=== PATIENT | female | born 1940 | race Caucasian/White ===

== ENCOUNTER 2016-10-07 09:37 | Emergency (ER) | payer MEDICARE, BC ==
[~2016-10-07] VITALS: Ht 160 cm; Wt 50.0 kg
[~2016-10-07 09:37] MED LIST: CEPH-443 PO; CRESTOR 10 MG; FOLI-49; METH2.5T33; SULFASALAZINE 1000 MG
[2016-10-07 09:41] VITALS: Ht 160 cm; Wt 50.0 kg
--- NOTE | 2016-10-07 11:34 | RADRPT ---
PROCEDURE: XR Hip. CLINICAL INDICATION: Left hip pain TECHNIQUE: AP and frog lateral views of the left hip were performed. COMPARISON: None. FINDINGS: No fracture or dislocation is identified. No significant soft tissue swelling is noted. No radiopaqu e foreign body is identified. IMPRESSION: 1. No acute fracture or dislocation. RPTAT: UU .Tina Merino MD, Date Time Electronically viewed and signed by .Tina Merino MD, MD on 10/07/2016 11:34 .N/
--- NOTE | 2016-10-07 11:36 | RADRPT ---
PROCEDURE: XR Lumbar Spine. CLINICAL INDICATION: Low back pain. TECHNIQUE: Three views of the lumbar spine are available for review COMPARISON: None available FINDINGS: The normal lumbar lordosis is preserved. Alignment is intact. Diffuse osseous demineralization is noted which limits evaluation for fracture. No acute lumbar spine compression fracture or dislocatio n is seen. The vertebral body heights are all normal. There are multilevel mild degenerative changes of lumbar spine, most pronounced at L5-S1. Aortic atherosclerotic vascular calcifications are identified. IMPRESSION: 1. Diffuse osseous demineralization. 2. No acute lumbar spine compression fracture or traumatic subluxation. 3. Multilevel mild degenerative changes of lumbar spine, most pronounced at L5-S1. 4. Aortic atherosclerosis. RPTAT: UU .Tina Merino MD, Date Time Electronically viewed and signed by .Tina Merino MD, on 10/07/2016 11:36 .N/
[2016-10-07] MEDS ORDERED: KETOROLAC 15 MG INJ IM STA (11:44)
[2016-10-07] MEDS ORDERED: ULT50 PO (11:56)
--- NOTE | 2016-10-07 12:07 | ERD ---
ER Documentation Chief Complaint Date/Time DATE: 10/07/16 TIME: 12:00 Chief Complaint LT LOWER BACK /HIP PAIN S/P HIT ON CORNER OF TABLE AT HOME HPI Patient is a 76-year-old female here with son presents to the ED with low back pain. She states that she hit her left low back on a kitchen cabinet 2 weeks ago. She states that the pain comes and goes. She denies radiation of pain. She states the pain is a 3/10. She states that she takes tylenol and warm patches for her symptoms which helps with the pain. She denies urinary symptoms. She denies chest pain, shortness of breath, cough or difficulty breathing. She denies headache or dizziness. She denies hitting her head, blacking out or losing consciousness. She states she is able to walk without difficulty. She denies weakness or fatigue. She denies saddle anesthesia. She denies difficulty urinating or stooling. She denies bleeding. She states that she continues to clean the house, rake the leaves even after the injury 2 weeks ago. Denies other symptoms. ROS All systems reviewed and are negative except as per history of present illness. Medications Home Meds Active Scripts Tramadol HCl (Tramadol HCl) 50 Mg Tablet, 50 MG PO Q6 Y for PAIN, #7 TAB Prov:VASILE PETERSEN PA-C 10/07/16 Reported Medications Folic Acid* (Folic Acid*) 1 Mg Tablet 11/20/12 [sulfasalinide 1000mg bid] No Conflict Check 11/20/12 [crestor 10mg] No Conflict Check 11/20/12 Methotrexate Sodium (Methotrexate) 2.5 Mg Tablet, 8 tabs 11/20/12 Cephalexin* (Keflex*) 500 Mg Capsule, PO Q6 05/05/11 Allergies Allergies: Coded Allergies: No Allergy Information Available (Verified Allergy, Mild, 05/05/11) Uncoded Allergies: NKDA (Allergy, 05/05/11) PMhx/Soc Anesthesia Reaction: No Hx Neurological Disorder: Yes (degenerative eye problem) Hx Respiratory Disorders: No Hx Cardiac Disorders: Yes (high cholesterol) Hx Psychiatric Problems: No Hx Miscellaneous Medical Probl: Yes (vertigo,rhematoid arthritis) Hx Alcohol Use: No Hx Substance Use: No Hx Tobacco Use: No Physical Exam Vitals Physical Exam GENERAL: Well-developed, well-nourished female Appears in no acute distress. HEAD: Normocephalic, atraumatic. LUNG: Clear to auscultation bilaterally. No rhonchi, wheezing, rales or coarse breath sounds. HEART: Regular rate and rhythm. No murmurs, rubs or gallops. BACK: No midline tenderness. slight tenderness to left lower back. no deformities, step offs. no open wounds. no erythema or signs of infection. able to ambulate without difficulty. able to bend down, flexion and extension with minimal difficulty. Extremities: Equal pulses bilaterally. No peripheral clubbing, cyanosis or edema. No unilateral leg swelling. NEUROLOGIC: Alert and oriented. Moving all four extremities. 5/5 strength in all extremities. Normal speech. Steady gait. SKIN: Normal color. Warm and dry. No rashes or lesions. Capillary refill < 2 seconds Results 24 hrs Current Medications Medications (Trade) Dose Ordered Sig/[place] Route PRN Reason Start Time Stop Time Status Last Admin Dose Admin Ketorolac Tromethamine (Toradol) 15 mg ONCE STAT IM 10/07/16 11:44 10/07/16 11:45 DC 10/07/16 11:56 Procedures/MDM ER COURSE: I kept the patient and/or family informed of laboratory and diagnostic imaging results throughout the emergency room course. EKG, MONITORS, & DIAGNOSTIC IMAGING: [place] [address] Radiology Main Line: [phone] DIAGNOSTIC IMAGING REPORT Patient: PILLO HOOVER : 1940 Age: 76 Sex: F MR #: [id number] DOS: 10/07/16 1034 Ordering MD: VASILE PETERSEN PA-C Location: [facility] Room/Bed: PROCEDURE: XR Hip. CLINICAL INDICATION: Left hip pain TECHNIQUE: AP and frog lateral views of the left hip were performed. COMPARISON: None. FINDINGS: No fracture or dislocation is identified. No significant soft tissue swelling is noted. No radiopaque foreign body is identified. IMPRESSION: 1. No acute fracture or dislocation. RPTAT: UU .Tina Merino MD, MD Date Time Electronically viewed and signed by .Tina Merino MD, MD on 10/07/2016 11: 34 .N/ CC: VASILE PETERSEN PA-C [place] [address] Radiology Main Line: [phone] DIAGNOSTIC IMAGING REPORT Patient: PILLO HOOVER : 1940 Age: 76 Sex: F MR #: [id number] DOS: 10/07/16 1034 Ordering MD: VASILE PETERSEN PA-C Location: [facility] Room/Bed: PROCEDURE: XR Lumbar Spine. CLINICAL INDICATION: Low back pain. TECHNIQUE: Three views of the lumbar spine are available for review COMPARISON: None available FINDINGS: The normal lumbar lordosis is preserved. Alignment is intact. Diffuse osseous demineralization is noted which limits evaluation for fracture. No acute lumbar spine compression fracture or dislocation is seen. The vertebral body heights are all normal. There are multilevel mild degenerative changes of lumbar spine, most pronounced at L5-S1. Aortic atherosclerotic vascular calcifications are identified. IMPRESSION: 1. Diffuse osseous demineralization. 2. No acute lumbar spine compression fracture or traumatic subluxation. 3. Multilevel mild degenerative changes of lumbar spine, most pronounced at L5- S1. 4. Aortic atherosclerosis. RPTAT: UU .Tina Merino MD, MD Date Time Electronically viewed and signed by .Tina Merino MD, MD on 10/07/2016 11: 36 .N/ CC: VASILE PETERSEN PA-C MEDICATIONS: Toradol 15mg IM. Patient tolerated medication well with no adverse reaction. Patient seen improvement in symptoms. MEDICAL DECISION MAKING: This is a 76-year-old female who presents with low back pain. Vital signs were reviewed. Patient is afebrile. Patient is not hypoxic. Patient is not toxic or ill-appearing. Temperature 98.1, blood pressure 161/76. O2 sat 97. Patient likely has a muscle strain. Low suspicion for cauda equine syndrome, spinal epidural hematoma, spinal epidural abscess, osteomyelitis, fracture, aortic dissection, AAA, pyelonephritis, nephrolithiasis, septic stone, obstructed stone. Low suspicion for dislocation, fracture, septic joint, compartment syndrome, osteomyelitis, cellulitis, avascular necrosis, neurological injury, vascular injury, tendon laceration. I do not think additional imaging is necessary such as a CT scan or blood work. Patient is stable and not ill appearing. Her mildly elevated blood pressure is likely related to her age and pain as she does not show signs of hypertensive urgency, emergency or end organ damage. Low suspicion for intracranial hemorrhage, meningitis, intracranial mass, concussion, temporal arteritis, stroke, elevated intracranial pressure, seizure. She denies hitting her head, headache, dizziness or weakness. DISCHARGE: At this time, patient is stable for discharge and outpatient management with no new complaints during the ER course. Patient was sent home with tramadol. Patient will be discharged home with instructions to recheck for new or worsening symptoms such as fever, nausea, weakness, LOC and to follow up with primary care in the next 1-2 days. Patient was advised to return to the ER for any new or worsening symptoms. Plan was discussed and patient and/or family understands and agrees. Home instructions were given. Departure Diagnosis: Primary Impression: Back pain Back pain location: low back pain Chronicity: unspecified Back pain laterality: left Sciatica presence: without sciatica Qualified Code: M54.5 - Left-sided low back pain without sciatica, unspecified chronicity Condition: Stable Patient Instructions: Back Pain (Acute Or Chronic) Additional Instructions: Llame al doctor MARV y michele leslie SADAF PARA DENTRO DE 1-2 ABDUL.Dgale a la secretaria que nosotros le instruimos hacer esta sadaf.Avise o llame si gambino condicin se empeora antes de la sadaf. Regresa aqui si peor o no mejor. VASILE PETERSEN PA-C Oct 07, 2016 12:07 Llame al doctor MARV y michele leslie SADAF PARA DENTRO DE 1-2 ABDUL.Dgale a la secretaria que nosotros le instruimos hacer esta sadaf.Avise o llame si gambino condicin se empeora antes de la sadaf. Regresa aqui si peor o no mejor. VASILE PETERSEN PA-C Oct 07, 2016 12:07
== END 2016-10-07 12:23 | disposition home or self-care (01) ==
LOC: FTE 09:37
DX: S39.92XA Unspecified injury of lower back, initial encounter (principal); W22.8XXA Striking against or struck by other objects, initial encounter; Y92.000 Kitchen of unspecified non-institutional (private) residence as the place of occurrence of the external cause
CPT/HCPCS: 72100; 73510; 96372; 99284; J1885